=== PATIENT | male | born 1985 | race Caucasian/White ===

== ENCOUNTER 2017-06-08 23:25 | Emergency (ER) | payer MEDICAID ==
--- NOTE | 2017-06-09 00:59 | ED Physician Documentation ---
PD HPI HEENT - Stated complaint Stated Complaint: TOOTHACHE - Chief complaint Chief Complaint: Heent - History obtained from History obtained from: Patient - History of Present Illness Timing - onset: How many days ago (3-4) Timing - details: Gradual onset, Waxing and waning Location: Tooth Improves: Nothing Worsens: Other (no exacerbating factors) Associated symptoms: No: Fever Recently seen: Not recently seen - Additional information Additional information: c/o gradually worsening pain associated with right upper tooth and foul-smelling /tasting discharge from the tooth. Has dental appointment scheduled for 06/22 Review of Systems Constitutional: denies: Fever Throat: reports: Dental pain / toothache PD PAST MEDICAL HISTORY - Past Medical History Past Medical History: Yes Cardiovascular: Hypertension - Past Surgical History Past Surgical History: Yes - Present Medications Home Medications: Ambulatory Orders Medication Instructions Recorded Confirmed Lisinopril 20 mg PO DAILY 06/08/17 06/08/17 buPROPion [Wellbutrin Sr] 100 mg PO DAILY 06/08/17 06/08/17 Clindamycin HCl 300 mg PO Q6HR 7 Days 06/09/17 - Allergies Allergies/Adverse Reactions: Allergies Allergy/AdvReac Type Severity Reaction Status Date / Time No Known Drug Allergies Allergy Verified 06/08/17 23:29 - Social History Does the pt smoke?: No Smoking Status: Never smoker Does the pt drink ETOH?: No Does the pt have substance abuse?: No - Immunizations Immunizations are current?: Yes - POLST Patient has POLST: No PD ED PE NORMAL - Vitals Vital signs reviewed: Yes - General General: Alert and oriented X 3, No acute distress, Well developed/nourished - HEENT HEENT: Moist mucous membranes PD ED PE EXPANDED - HEENT HEENT Visual: 1 - tenderness (tenderness to percussion; large cavity noted. no active discharge, no fluctuance or erythema of gingiva) Results - Vitals Vitals: Vital Signs - 24 hr 06/08/17 06/09/17 23:28 01:20 Temperature 36.7 C Heart Rate 85 75 Respiratory 16 14 Rate Blood Pressure 145/100 H 150/95 H O2 Saturation 97 100 Oxygen O2 Source Room air PD MEDICAL DECISION MAKING - ED course Complexity details: considered differential, d/w patient Departure - Departure Disposition: 01 Home, Self Care Clinical Impression: Pain due to dental caries Condition: Good Instructions: ED Tooth Pain Prescriptions: Clindamycin HCl 300 mg PO Q6HR 7 Days Discharge Date/Time: 06/09/17 01:20
[2017-06-09] MEDS ORDERED: CLINDAMYCIN 150 MG CAPSULE PO STA (01:08)
[2017-06-09] MEDS ORDERED: CLINDAMYCIN 150 MG CAPSULE PO ONE (01:16)
[2017-06-09 01:27] VITALS: BP 150/95
== END 2017-06-09 01:20 | disposition home or self-care (01) ==
LOC: EDBD → ED 23:25
DX: K02.9 Dental caries, unspecified (principal); K08.89 Other specified disorders of teeth and supporting structures; I10 Essential (primary) hypertension
CPT/HCPCS: 99283; A9270